=== PATIENT | female | born 1970 ===

== ENCOUNTER 2018-10-13 12:32 | Emergency (ER) | payer OTHER ==
[~2018-10-13] VITALS: Ht 154.9 cm; Wt 104.3 kg
[2018-10-13] MEDS ORDERED: EVISTA60 MG PO (13:11)
[2018-10-13] MEDS ORDERED: ALTACE1.25 MG PO (13:11)
== END 2018-10-13 21:22 | disposition home or self-care (01) ==
LOC: ER 12:32
DX: K58.9 Irritable bowel syndrome, unspecified (principal)

== ENCOUNTER 2019-04-06 07:34 | Outpatient (CLI) | payer OTHER ==
[~2019-04-06 07:34] MED LIST: ALTACE1.25 MG PO; EVISTA60 MG PO
== END 2019-04-06 07:37 | disposition home or self-care (01) ==
LOC: SONOGRAMA 07:34
DX: R16.0 Hepatomegaly, not elsewhere classified (principal); R10.84 Generalized abdominal pain